=== PATIENT | female | born 1985 | race Caucasian/White ===

== ENCOUNTER 2019-08-23 05:40 | Outpatient (CLI) | payer MEDICAID ==
[~2019-08-23] VITALS: Ht 165.1 cm; Wt 115.0 kg
== END 2019-08-23 09:33 | disposition home or self-care (01) ==
LOC: PREOP 05:40
PROVIDERS: ATTEND Obstetrics & Gynecology
DX: Z01.818 Encounter for other preprocedural examination (principal)

== ENCOUNTER 2019-08-26 11:00 | Day surgery (SDC) | payer MEDICAID ==
[~2019-08-26] VITALS: Ht 165.1 cm; Wt 115.0 kg
[2019-08-26] VITALS (11 sets, daily range): BP systolic 99–140; BP diastolic 58–94
[2019-08-26] MEDS ORDERED: ceFAZolin INJECTION 1,000 MG in WATER (STERILE) FOR INJECTION 10 ML IV ONE (11:15)
[2019-08-26] MEDS ORDERED: BUP/EPI 0.5% 1:200,000 (SENSORCAINE) 30 ML VIAL ONE (11:19)
[2019-08-26] MEDS: LACTATED RINGERS 1,000 ML IV PRN ×2 (11:28→14:17)
[2019-08-26] MEDS ORDERED: CATHETER FLUSH 10 ML SYR IV PRN (11:30)
[2019-08-26 11:45] LABS: BASOPHILS % (AUTO) 1 % (0-10); EOSINOPHILS # (AUTO) 0.2 10^3/uL (0.0-0.3); EOSINOPHILS % (AUTO) 3 % (0-10); HEMATOCRIT 41 % (35-52); HEMOGLOBIN 13.5 G/DL (11.5-16.0); LYMPHOCYTES # (AUTO) 2.8 X 10^3 (1.0-4.0); LYMPHOCYTES % (AUTO) 34 % (12-44); MEAN CORPUSCULAR HEMOGLOBIN 30 PG (25-34); MEAN CORPUSCULAR HGB CONC 33 G/DL (32-36); MEAN CORPUSCULAR VOLUME 89 FL (80-99); MEAN PLATELET VOLUME 10.4 FL (7.4-10.4); MONOCYTES # (AUTO) 0.8 X 10^3 (0.0-1.0); MONOCYTES % (AUTO) 9 % (0-12); NEUTROPHILS # (AUTO) 4.5 X 10^3 (1.8-7.8); NEUTROPHILS % (AUTO) 54 % (42-75); PLATELET COUNT 354 10^3/uL (130-400); RED CELL DISTRIBUTION WIDTH 13.5 % (10.0-14.5); WHITE BLOOD COUNT 8.4 10^3/uL (4.3-11.0)
[2019-08-26] MEDS ORDERED: MIDAZOLAM 2 MG/2 ML (VERSED) VIAL ONE (12:26)
[2019-08-26] MEDS ORDERED: fentaNYL INJECTION 100 MCG/2 ML AMP ONE ×2 (12:26→13:33)
[2019-08-26] MEDS ORDERED: FAMOTIDINE 20MG/2ML IV (PEPCID) IV ONE (13:00)
[2019-08-26] MEDS ORDERED: FAMOTIDINE 20MG/2ML IV (PEPCID) ONE (13:08)
--- NOTE | 2019-08-26 13:17 | Progress Note-Pre Operative ---
Pre-Operative Progress Note H&P Reviewed The H&P was reviewed, patient examined and no changes noted. Date Seen by Provider: Aug 26, 2019 Time Seen by Provider: 13:17 Date H&P Reviewed: Aug 26, 2019 Time H&P Reviewed: 13:17 Pre-Operative Diagnosis: CPP/ovarian cysts MARTHA FRASER MD Aug 26, 2019 13:17
[2019-08-26] MEDS ORDERED: D5 LR IV SOLUTION 1,000 ML IV SCH (13:18)
--- NOTE | 2019-08-26 13:18 | Progress Note-Post Operative ---
Post-Operative Progess Note Surgeon (s)/J2Ee Engineer (s) Surgeon MARTHA FRASER MD J2Ee Engineer: Nadege Pre-Operative Diagnosis CPP/ovarian cysts Post-Operative Diagnosis same with extensice left ovarian and left pelvic adhesions Procedure & Operative Findings Date of Procedure 08/26/19 Procedure Performed/Findings LS L oophorectomy and LS adhesiolysis Anesthesia Type GETA Estimated Blood Loss Estimated blood loss (mL): min Specimens/Packing Specimens Removed left ovary Packing: MARTHA Solis MD Aug 26, 2019 13:18
[2019-08-26] MEDS ORDERED: IBUP-1780 PO (13:20)
[2019-08-26] MEDS ORDERED: OXYC1TAB87 PO (13:20)
--- NOTE | 2019-08-26 13:21 | Discharge Instructions ---
Discharge Instructions Discharge Medications New, Converted or Re-Newed RX: RX on Chart Patient Instructions Return to The Hospital For: as directed Activity & Diet Discharge Diet: No Restrictions Activity as Tolerated: No Orders-Post D/C & Referrals Follow Up Appt: Call to make follow up appt. for patient in 1 week. Activity: Rest for 24 hours, than as tolerated. Wound Care: May remove Band-Aid tomorrow. Replace as desired. Keep incisions clean and dry. Wash daily with soap and water. Please call in RX to patient pharmacy. Diet: As tolerated-Clear Liquids only if nauseated. shower or tub bathe as desired. No driving for 24 hours, no alcoholic beverages for 24 hours, and nothing per va albert (no tampons, douching, or intercourse) for 2 weeks. Patient to return to the clinic as soon as possible for: Temperature greater than 101F, Severe Pain, Foul discharge from incision or vagina, Excessive Bleeding (more than a period). MARTHA FRASER MD Aug 26, 2019 13:21
[2019-08-26] MEDS ORDERED: ONDANSETRON 4 MG/2 ML (SDV) Z0FRAN IVP PRN ×2 (13:30→14:45)
[2019-08-26] MEDS ORDERED: PROMETHAZINE INJ 25 MG/ML (PHENERGAN) AMP IM ONE (13:30)
[2019-08-26] MEDS ORDERED: MEPERIDINE (DEMEROL) INJ 100 MG/ML IM ONE (13:30)
[2019-08-26] MEDS ORDERED: KETOROLAC 30 MG/ML VIAL IVP ONE (13:30)
[2019-08-26] MEDS ORDERED: oxyCODONE/APAP 5/325MG (PERCOCET 5) TABLET PO PRN (13:30)
[2019-08-26] MEDS ORDERED: proPOfol 200 MG/20 ML (DIPRIVAN) VIAL IV ONE (14:11)
[2019-08-26] MEDS ORDERED: ROCURONIUM 50 MG/5 ML (ZEMURON) VIAL IV ONE (14:11)
[2019-08-26] MEDS ORDERED: SEVOFLURANE (ULTANE) 15 ML INHAL SOLN ONE (14:11)
[2019-08-26] MEDS ORDERED: DEXAMETHASONE 10 MG/ML (DECADRON) 1 ML VIAL ONE (14:11)
[2019-08-26] MEDS ORDERED: LIDOCAINE PF 2% 5 ML (XYLOCAINE) VIAL ONE (14:11)
[2019-08-26] MEDS ORDERED: ONDANSETRON 4 MG/2 ML (SDV) Z0FRAN ONE (14:11)
[2019-08-26] MEDS ORDERED: GLYCOPYRROLATE 0.2 MG/ML (ROBINUL) 2 ML VIAL ONE (14:12)
[2019-08-26] MEDS ORDERED: NEOSTIGMINE 3 MG/3 ML VIAL ONE (14:12)
--- NOTE | 2019-08-26 14:32 | Anesthesia-General Post-Op ---
General Patient Condition Mental Status/LOC: Same as Preop Cardiovascular: Satisfactory Nausea/Vomiting: Absent Respiratory: Satisfactory Pain: Controlled Complications: Absent Post Op Complications Complications None Follow Up Care/Instructions Patient Instructions None needed. Anesthesia/Patient Condition Patient Condition Patient is doing well, no complaints, stable vital signs, no apparent adverse anesthesia problems. No complications reported per nursing. KAYLEY BLEDSOE CRNA Aug 26, 2019 14:32
[2019-08-26] MEDS ORDERED: morphine INJ 10 MG/ML 1ML (SYR OR VIAL) IVP ONE (14:45)
[2019-08-26] MEDS ORDERED: fentaNYL INJECTION 100 MCG/2 ML AMP IVP ONE (14:45)
[2019-08-26] MEDS ORDERED: HYDROmorphone 2 MG/ML VIAL (DILAUDID) IV ONE (14:45)
[2019-08-26] MEDS ORDERED: PROMETHAZINE INJ 25 MG/ML (PHENERGAN) AMP IVP ONE (14:45)
[2019-08-26] MEDS ORDERED: MEPERIDINE (DEMEROL) INJ 50 MG/ML IVP ONE (14:45)
[2019-08-26] MEDS ORDERED: morphine INJ 10 MG/ML 1ML (SYR OR VIAL) ONE (14:45)
[2019-08-26] MEDS ORDERED: HYDROmorphone 2 MG/ML VIAL (DILAUDID) ONE (14:59)
--- NOTE | 2019-08-26 15:59 | NUR ---
DR. FRASER CALLED AND CLARIFIED IF OK TO ADMINISTER PERCOCET. PT HAS NOT TAKEN THIS MEDICATION PREVIOUSLY AND HAS DEVELOPED A RASH WITH TAKING HYDROCODONE IN THE PAST. ORDER RECEIVED THAT IT'S OK TO ADMINISTER PERCOCET ORDERED, TO MONITOR PT FOR AT LEAST 30 MINS POST ADMINISTRATION, AND EDUCATED PT THAT IF ANY PROBLEMS THAT PT CAN HAVE PAGED, OR IF ANY SERIOUS REACTIONS, SOB, OR ANY DIFFICULTY BREATHING TO REPORT TO THE ER. PT EDUCATED ON INSTRUCTIONS AND VERBALIZES UNDERSTANDING. LITA IN PHARMACY CALLED AND NOTIFIED THAT PERCOCET IS OK TO BE GIVEN.
--- NOTE | 2019-08-27 00:33 | OPERATIVE REPORT ---
DATE OF SERVICE: 08/26/2019 PREOPERATIVE DIAGNOSES: Chronic pelvic pain. POSTOPERATIVE DIAGNOSES: Chronic pelvic pain with extensive pelvic particularly left pelvic adhesions. OPERATIVE PROCEDURE: Laparoscopic adhesiolysis, laparoscopic left oophorectomy. OPERATIVE DESCRIPTION: With the patient in the supine position under satisfactory general anesthesia, she was repositioned in dorsal lithotomy position in the [facility] and prepped and draped in the usual fashion for abdominal and vaginal surgery. Moist Kerlix was placed in the vagina to distend the upper vagina. The patient brought in low dorsal lithotomy position. A 5 mm incision made in the patient's left upper quadrant. Veress needle was placed through that incision into the abdominal cavity. Correct placement confirmed with water drop test. The abdomen was insufflated with 2.4 liters of carbon dioxide and the Veress needle was removed and a 5 mm Optiview laparoscopic port placed. The patient was placed in Trendelenburg allowing the bowel was swept out of pelvis. A 5 mm port was placed through an incision of that size suprapubically and then a 12 mm port was placed in the incision of that size in the inferior margin of the umbilicus where the patient had had previous laparoscopy incision. The port sites were infiltrated with 0.25% Marcaine with epinephrine prior to incision and port placement. With the patient in fairly strict Trendelenburg, the left ovary could be seen attached to the left anterior lateral abdominal wall with dense adhesions. The sigmoid and descending colon were adherent over that area as well and the sigmoid and rectosigmoid were adherent to the left pelvic sidewall and left pelvic brim. The right ovary was in fairly normal position on the right side of the pelvis and was only minimally involved in adhesions and it did look normal. Both fallopian tubes were surgically absent. Laparoscope was rotated. The appendix was seen. It was a normal vermiform appendix. Decision was made to leave it in situ. Attention was turned to the pelvic adhesions. The adhesions of the sigmoid and rectosigmoid and the pelvis were taken down very carefully and meticulously avoiding thermal or traumatic injury to the bowel itself and to the adjacent structures. With adhesions freed, the sigmoid could follow further up out of the pelvis. The adhesions of the terminus of the descending colon to the left anterior lateral abdominal wall over the ovary were then taken free, exposing the ovary completely. With the bowel completely freed and the appendix was freed from its adhesions, which was very dense and fibrotic to the left abdominal wall and then the and the left ovary was skeletonized on the IP ligament. An Endoloop was then placed across the base of the IP ligament, two of those were placed and then the ovary was resected sharply and placed in an Endobag and brought out through the umbilical port. The pelvis was examined for hemostasis, which was complete. There was no remaining abnormal pathology. All the adhesions had been lysed. The procedure at this point was terminated. The patient brought out of Trendelenburg. The operative instruments were removed under direct vision as were the ports. The abdomen was evacuated of insufflating gas in the process of removing the ports. The skin incisions were closed with interrupted sutures of 3-0 nylon, the fascia at the umbilical incision was closed with [id number] suture of 2-0 Vicryl. The Kerlix was removed from the vagina. Sponge and needle counts were correct. Blood loss was minimal. The patient tolerated the procedure well and was transferred to the recovery room after being uneventfully awakened from general anesthesia. Plan was for discharge home PAR. Job ID: [id number] DocumentID: [id number] Dictated Date: 08/26/2019 14:14:54 Roll Up Guider Operator Date: 08/27/2019 00:32:09 Dictated By: MARTHA FRASER MD
== END 2019-08-26 16:50 | disposition home or self-care (01) ==
LOC: SDC 11:00
PROVIDERS: ATTEND Obstetrics & Gynecology
DX: N83.202 Unspecified ovarian cyst, left side (principal); N73.6 Female pelvic peritoneal adhesions (postinfective); K21.9 Gastro-esophageal reflux disease without esophagitis; E66.9 Obesity, unspecified; Z68.41 Body mass index [BMI] 40.0-44.9, adult; Z90.710 Acquired absence of both cervix and uterus; Z98.51 Tubal ligation status; Z79.891 Long term (current) use of opiate analgesic; Z87.891 Personal history of nicotine dependence; Z82.49 Family history of ischemic heart disease and other diseases of the circulatory system
CPT/HCPCS: 36415; 85025; 87081; 88305

== ENCOUNTER 2021-01-09 11:15 | Emergency (ER) | payer MEDICAID, OTHER ==
[~2021-01-09] VITALS: Ht 167 cm; Wt 108.0 kg
[~2021-01-09 11:15] MED LIST: IBUP-1780 PO; OXYC1TAB87 PO
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
[2021-01-09] MEDS ORDERED: fentaNYL INJ 100 MCG/2 ML AMP IVP ONE (12:30)
[2021-01-09] MEDS ORDERED: ORPHENADRINE 60 MG/2 ML (NORFLEX) AMP (ED ONLY) IVP ONE (12:45)
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
[2021-01-09 12:50] LABS: BILIRUBIN,URINE NEGATIVE (NEGATIVE); CLARITY,URINE CLEAR; COLOR,URINE YELLOW; GLUCOSE, URINE (UA) NEGATIVE (NEGATIVE); KETONES,URINE NEGATIVE (NEGATIVE); LEUKOCYTE ESTERASE ,URINE NEGATIVE (NEGATIVE); NITRITE,URINE NEGATIVE (NEGATIVE); PROTEIN,URINE NEGATIVE (NEGATIVE)
[2021-01-09] MEDS ORDERED: CYCL10TA9 PO ×2 (13:02→13:12)
[2021-01-09 13:14] VITALS: BP 112/94
[2021-01-09 13:33] LABS: AMORPHOUS SEDIMENT,UR FEW AMOR URATES /LPF; BACTERIA,URINE NEGATIVE /HPF; RBC,URINE 0-2 /HPF
== END 2021-01-09 13:18 | disposition home or self-care (01) ==
LOC: EDUNIT# 11:15 → ER 11:17
DX: M79.602 Pain in left arm (principal); F17.210 Nicotine dependence, cigarettes, uncomplicated; V40.5XXA Car driver injured in collision with pedestrian or animal in traffic accident, initial encounter
CPT/HCPCS: 71045; 73060; 81000; 99282; A4565

== ENCOUNTER → 2022-01-08 | Outpatient (CLI) | payer MEDICAID ==
[~2022-01-08] MED LIST changes: +CYCL10TA25 PO; +RT-ALBUTEROL SULF 2.5 MG/3 ML PRE-MIX VIAL INH ONE
== END ==
LOC: RT 14:15
PROVIDERS: ATTEND Nurse Practitioner Family
DX: R06.02 Shortness of breath (principal); R05.9 Cough, unspecified
CPT/HCPCS: 94060; 94726; 94729

== ENCOUNTER → 2022-04-28 | Outpatient (CLI) | payer MEDICAID ==
[~2022-04-28] MED LIST changes: -RT-ALBUTEROL SULF 2.5 MG/3 ML PRE-MIX VIAL INH ONE
[2022-04-28 11:40] LABS: BASOPHILS # (AUTO) 0.1 10^3/uL (0.0-0.1); BASOPHILS % (AUTO) 1 % (0-10); EOSINOPHILS # (AUTO) 0.6 10^3/uL (0.0-0.3); EOSINOPHILS % (AUTO) 8 % (0-10); HEMATOCRIT 42 % (35-52); HEMOGLOBIN 13.8 g/dL (11.5-16.0); LYMPHOCYTES # (AUTO) 3.4 10^3/uL (1.0-4.0); LYMPHOCYTES % (AUTO) 43 % (12-44); MEAN CORPUSCULAR HEMOGLOBIN 30 pg (25-34); MEAN CORPUSCULAR HGB CONC 33 g/dL (32-36); MEAN CORPUSCULAR VOLUME 90 fL (80-99); MEAN PLATELET VOLUME 9.7 fL (9.0-12.2); MONOCYTES # (AUTO) 0.7 10^3/uL (0.0-1.0); MONOCYTES % (AUTO) 9 % (0-12); NEUTROPHILS # (AUTO) 3.2 10^3/uL (1.8-7.8); NEUTROPHILS % (AUTO) 40 % (42-75); PLATELET COUNT 343 10^3/uL (130-400)
--- NOTE | 2022-04-28 17:56 | Diagnostic Imaging Report ---
EXAMINATION: CT chest without contrast. TECHNIQUE: Multiple contiguous axial images were obtained through the chest without the use of intravenous contrast. All CT scans use one or more of the following dose optimizing techniques: Automated exposure control, MA and/or KvP adjustment based on patient size and exam type or iterative reconstruction. HISTORY: Asthma. Shortness of breath. Cough. COMPARISON: 01/09/2021. FINDINGS: The heart size is within normal limits. No pericardial effusion is present. There is no mediastinal, hilar, or axillary lymphadenopathy. The lungs demonstrate no pulmonary nodules or masses. There are no focal areas of consolidation. No central endobronchial obstructing lesions are identified. There is no pleural effusion or pneumothorax. The osseous structures demonstrate no acute abnormalities. Limited views of the upper abdominal structures demonstrate no acute abnormalities. Both adrenal glands are unremarkable. IMPRESSION: 1. No acute abnormalities are seen in the chest. No focal consolidation or suspicious pulmonary nodules. No pleural effusions. Dictated by: Dictated on workstation # [id number]
[2022-04-29 07:36] LABS: ALTERNARIA MOLD RAST <0.10 kU/L (0.00-0.09); RAGWEED RAST <0.10 kU/L (0.00-0.09)
== END ==
LOC: RAD 11:45
PROVIDERS: ATTEND Internal Medicine Critical Care Medicine
DX: R91.8 Other nonspecific abnormal finding of lung field (principal); J45.50 Severe persistent asthma, uncomplicated; J30.1 Allergic rhinitis due to pollen; K21.9 Gastro-esophageal reflux disease without esophagitis
CPT/HCPCS: 36415; 71250; 85025; 86003; 86021

== ENCOUNTER 2022-06-29 09:34 | Emergency (ER) | payer MEDICAID ==
[~2022-06-29] VITALS: Ht 167 cm; Wt 112.0 kg
--- NOTE | 2022-06-29 09:47 | ED Upper Extremity ---
General Chief Complaint: Laceration Stated Complaint: RIGHT INDEX FINGER LAC Source: patient Exam Limitations: no limitations History of Present Illness Date Seen by Provider: Jun 29, 2022 Time Seen by Provider: 09:37 Initial Comments 36-year-old female presents for cut to right index finger. Tenderness on the proximal portion of her right index finger. Unclear when her last tetanus shot was. No other injuries. No weakness numbness or tingling. Allergies and Home Medications Allergies Coded Allergies: hydrocodone (Verified Allergy, Unknown, Hives, 08/23/19) Patient Home Medication List Home Medication List Reviewed: Yes Cyclobenzaprine HCl (Cyclobenzaprine HCl) 10 Mg Tablet, 10 MG PO Q8H PRN for SPASMS Prescribed by: EUGENIO CHILDRESS on 01/09/21 1312 Ibuprofen (Ibuprofen) 800 Mg Tablet, 800 MG PO Q6H PRN for PAIN-MILD Prescribed by: MARTHA MOSQUEDA on 08/26/19 1320 Oxycodone HCl/Acetaminophen (Percocet 5-325 mg Tablet) 1 Each Tablet, 1 TAB PO Q4H Prescribed by: MARTHA MOSQUEDA on 08/26/19 1320 Review of Systems Constitutional: no symptoms reported EENTM: no symptoms reported Respiratory: no symptoms reported Cardiovascular: no symptoms reported Gastrointestinal: no symptoms reported Genitourinary: no symptoms reported Musculoskeletal: no symptoms reported Skin: other (Convincingly laceration) Psychiatric/Neurological: No Symptoms Reported Past Rfijudd-Dmrxvr-Nexqjl Hx Seasonal Allergies Seasonal Allergies: No Past Medical History Surgeries: Yes (uterine ablation, several ovarian cystectomies, R shoulder) Hysterectomy, Tubal Ligation Respiratory: No Cardiac: No (murmur when younger) 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 oz. kg; 38.00 BMI Method: General Appearance: WD/WN, no apparent distress Cardiovascular: regular rate, rhythm, no edema, no gallop, no JVD, no murmur Respiratory: chest non-tender, lungs clear, normal breath sounds, no respiratory distress, no accessory muscle use Neurologic/Psychiatric: alert, oriented x 3 Skin: other (Subcentimeter laceration at the proximal portion of the extensor surface of the right index finger. No evidence of tendinous involvement. Neurovascular motor and sensory intact distally. No bleeding.) Progress/Results/Core Measures Results/Orders My Orders Orders - LES FREITAS DO Dipht,Pertuss(Acell),Tet Adult (Boostrix (06/29/22 10:00) Vital Signs/I&O 06/29/22 09:42 Temp 36.8 Pulse 80 Resp 20 B/P (MAP) 128/88 (101) Pulse Ox 98 O2 Delivery Room Air Departure Communication (Admissions) Hemodynamically stable, neurovascular and sensory intact. Laceration does not require stitches. Tetanus updated she is discharged in stable condition. Impression Primary Impression: Laceration of right index finger Qualified Codes: S61.210A - Laceration without foreign body of right index finger without damage to nail, initial encounter Disposition: HOME, SELF-CARE Condition: Stable Departure-Patient Inst. Referrals: LISA DOMINGUEZ APRN (PCP/Family) Primary Care Physician Add. Discharge Instructions: As discussed this Does not require stitches. The area clean. Shower or bathe as normal but do not submerge it in water. All discharge instructions reviewed with patient and/or family. Voiced understanding. LES FREITAS DO Jun 29, 2022 09:47
[2022-06-29] MEDS ORDERED: TETANUS,DIPTH,PERTUSS P/F (BOOSTRIX) 0.5 ML VIAL IM ONE (10:00)
[2022-06-29 10:10] VITALS: BP 128/88
== END 2022-06-29 10:09 | disposition home or self-care (01) ==
LOC: EDUNIT# 09:34 → ER 09:36
DX: S61.210A Laceration without foreign body of right index finger without damage to nail, initial encounter (principal); Z28.310 Unvaccinated for COVID-19; Z23 Encounter for immunization; W26.8XXA Contact with other sharp object(s), not elsewhere classified, initial encounter
CPT/HCPCS: 90715